=== PATIENT | female | born 1950 | race Caucasian/White ===

== ENCOUNTER → 2017-12-02 | Outpatient (CLI) | payer MEDICARE, OTHER | END | disposition home or self-care (01) | LOC: CFH 13:40 | PROVIDERS: ATTEND Family Medicine | DX: Z12.31 Encounter for screening mammogram for malignant neoplasm of breast (principal); Z13.820 Encounter for screening for osteoporosis; N95.9 Unspecified menopausal and perimenopausal disorder; M85.80 Other specified disorders of bone density and structure, unspecified site | CPT/HCPCS: 77063; 77080; 77067 ==

== ENCOUNTER 2020-06-03 13:18 | Day surgery (SDC) | payer MEDICARE, OTHER ==
[~2020-06-03] VITALS: Ht 167.6 cm; Wt 53.5 kg
[2020-06-03] MEDS ORDERED: CHLORHEXIDINE 15 ML UDC MM ONE (14:00)
[2020-06-03] MEDS ORDERED: LEVO25CA4 PO (14:05)
[2020-06-03] MEDS ORDERED: LIOT5TAB11 PO (14:05)
[2020-06-03 14:13] VITALS: BP 121/72
[2020-06-03] MEDS ORDERED: LACTATED RINGERS 1,000 ML IV SCH (14:30)
[2020-06-03] MEDS ORDERED: PROPOFOL 10 MG/ML, 20ML ONE (15:45)
[2020-06-03] MEDS ORDERED: HYDROmorphone 1 MG/ML, 1ML INJ IVPush PRN (16:00)
[2020-06-03] MEDS ORDERED: FENTANYL PF 100 MCG/2ML IV PRN (16:00)
[2020-06-03] MEDS ORDERED: MEPERIDINE/PF 25MG/0.5ML IVPush PRN (16:00)
[2020-06-03] MEDS ORDERED: ONDANSETRON 2MG/ML, 2ML IVPush PRN (16:00)
[2020-06-03] MEDS ORDERED: ACETAMINOPHEN 650 MG/20.3 ML UDC ONE (17:25)
[2020-06-03] MEDS ORDERED: ACETAMINOPHEN 650 MG/20.3 ML UDC PO PRN (17:30)
[2020-06-03] MEDS ORDERED: ACETAMINOPHEN 650 MG/20.3 ML UDC PO ONE (18:00)
== END 2020-06-03 18:30 | disposition home or self-care (01) ==
LOC: OR 13:18
PROVIDERS: ATTEND Internal Medicine
DX: D12.8 Benign neoplasm of rectum (principal); E03.9 Hypothyroidism, unspecified; Z20.822 Contact with and (suspected) exposure to COVID-19; Z79.890 Hormone replacement therapy; Z79.899 Other long term (current) drug therapy
CPT/HCPCS: 45341; 45349; 87635; 88305; 93005; J2704; J7120